=== PATIENT | female | born 1995 | race American Indian/Alaskan Native ===

== ENCOUNTER 2018-04-25 23:00 | Emergency (ER) | payer SELFPAY ==
[2018-04-26 02:40] LABS: HCG Qualitative,Urine Negative (Negative)
[2018-04-26 02:43] LABS: Bilirubin,Urine NEG (Negative); Blood,Urine MOD (Negative); Color,Urine Yellow (Yellow)
[2018-04-26 02:44] LABS: WBC,Urine > 182.0 /HPF (0.0-6.0)
--- NOTE | 2018-04-26 03:39 | Emergency Department Report ---
ED Female HPI - General Chief complaint: Urogenital-Female Stated complaint: POSSIBLE URINARY TRACT INFECTION Time Seen by Provider: 04/26/18 01:50 Source: patient Mode of arrival: Ambulatory Limitations: No Limitations - History of Present Illness MD Complaint: dysuria -: week(s) (1) Location: suprapubic Radiation: non-radiating Severity: mild Quality: burning Consistency: constant Improves with: urination Are you Now?: No Associated Symptoms: dysuria. denies: vaginal discharge, vaginal bleeding, abdominal pain, nausea/vomiting, headaches, shortness of breath, syncope - Related Data Previous Rx's Medication Instructions Recorded Last Taken Type Nitrofurantoin Monohyd/M-Cryst 100 mg PO BID #14 capsule 01/24/18 Unknown Rx [Macrobid 100 mg Capsule] Fluconazole [Diflucan] 150 mg PO ONCE #3 tablet 04/26/18 Unknown Rx Nitrofurantoin Monohyd/M-Cryst 100 mg PO BID #20 capsule 04/26/18 Unknown Rx [Macrobid 100 mg Capsule] Phenazopyridine [Pyridium] 200 mg PO TID #9 tab 04/26/18 Unknown Rx Allergies Allergy/AdvReac Type Severity Reaction Status Date / Time No Known Allergies Allergy Unverified 01/24/18 06:00 ED Review of Systems ROS: Stated complaint: POSSIBLE URINARY TRACT INFECTION Other details as noted in HPI Constitutional: denies: chills, fever Eyes: denies: eye pain, eye discharge, vision change ENT: denies: ear pain, throat pain Respiratory: denies: cough, shortness of breath, wheezing Cardiovascular: denies: chest pain, palpitations Endocrine: no symptoms reported Gastrointestinal: denies: abdominal pain, nausea, diarrhea Genitourinary: dysuria. denies: urgency, discharge Musculoskeletal: denies: back pain, joint swelling, arthralgia Skin: denies: rash, lesions Neurological: denies: headache, weakness, paresthesias Psychiatric: denies: anxiety, depression Hematological/Lymphatic: denies: easy bleeding, easy bruising ED Past Medical Hx - Past Medical History Previous Medical History?: No - Surgical History Past Surgical History?: No - Social History Smoking Status: Never Smoker Substance Use Type: None - Medications Home Medications: Home Medications Medication Instructions Recorded Confirmed Last Taken Type Nitrofurantoin Monohyd/M-Cryst 100 mg PO BID #14 capsule 01/24/18 Unknown Rx [Macrobid 100 mg Capsule] Fluconazole [Diflucan] 150 mg PO ONCE #3 tablet 04/26/18 Unknown Rx Nitrofurantoin Monohyd/M-Cryst 100 mg PO BID #20 capsule 04/26/18 Unknown Rx [Macrobid 100 mg Capsule] Phenazopyridine [Pyridium] 200 mg PO TID #9 tab 04/26/18 Unknown Rx ED Physical Exam - General Limitations: No Limitations General appearance: alert, in no apparent distress - Head Head exam: Present: atraumatic, normocephalic - Eye Eye exam: Present: normal appearance - ENT ENT exam: Present: mucous membranes moist - Neck Neck exam: Present: normal inspection - Respiratory Respiratory exam: Present: normal lung sounds bilaterally. Absent: respiratory distress - Cardiovascular Cardiovascular Exam: Present: regular rate, normal rhythm. Absent: systolic murmur, diastolic murmur, rubs, gallop - GI/Abdominal GI/Abdominal exam: Present: soft, normal bowel sounds - Extremities Exam Extremities exam: Present: normal inspection - Back Exam Back exam: Present: normal inspection - Neurological Exam Neurological exam: Present: alert, oriented X3 - Psychiatric Psychiatric exam: Present: normal affect, normal mood - Skin Skin exam: Present: warm, dry, intact, normal color. Absent: rash Critical care attestation.: If time is entered above; I have spent that time in minutes in the direct care of this critically ill patient, excluding procedure time. ED Disposition Clinical Impression: UTI (urinary tract infection) Disposition: - TO HOME OR SELFCARE Is pt being admited?: No Does the pt Need Aspirin: No Condition: Stable Instructions: Phenazopyridine (By mouth), Urinary Tract Infection in Women (ED), Dysuria (ED) Prescriptions: Fluconazole [Diflucan] 150 mg PO ONCE #3 tablet Nitrofurantoin Monohyd/M-Cryst [Macrobid 100 mg Capsule] 100 mg PO BID #20 capsule Phenazopyridine [Pyridium] 200 mg PO TID #9 tab Referrals: HAN MCGRAW DO [Primary Care Provider] - 3-5 Days
[2018-04-26 03:49] VITALS: BP 121/71
== END 2018-04-26 03:45 | disposition home or self-care (01) ==
LOC: ED 23:00
DX: N39.0 Urinary tract infection, site not specified (principal)
CPT/HCPCS: 81001; 81025